=== PATIENT | male | born 2000 | race American Indian/Alaskan Native ===

== ENCOUNTER 2021-09-29 13:59 | Emergency (ER) | payer MEDICAID ==
[2021-09-29 15:05] VITALS: BP 129/65
--- NOTE | 2021-09-29 15:08 | Emergency Department Report ---
ED Extremity Problem HPI - General Stated complaint: INGROWN TOENAIL Time Seen by Provider: 09/29/21 15:03 - History of Present Illness Initial comments: 21-year-old black male with a past medical history of diabetes type 2 presents to the emergency department for evaluation of bilateral great toe pain. He states that yesterday while working he started to feel like he had an ingrown toenail. He denies fever or drainage. Complaint: extremity pain -: days(s) (1) Location: bilateral lower extremity, toe History of Same: No -: No fever Severity scale (0 -10): 2 Quality: aching Consistency: constant Associated Symptoms: denies other symptoms - Related Data Home Medications Medication Instructions Recorded Confirmed Last Taken No Known Home Medications [No 12/12/13 12/12/13 Unknown Reported Home Medications] Allergies Allergy/AdvReac Type Severity Reaction Status Date / Time No Known Allergies Allergy Unverified 12/12/13 10:22 ED Review of Systems ROS: Stated complaint: INGROWN TOENAIL Other details as noted in HPI Comment: All other systems reviewed and negative Constitutional: denies: fever Gastrointestinal: denies: abdominal pain, nausea, vomiting ED Past Medical Hx - Past Medical History Additional medical history: none - Medications Home Medications: Home Medications Medication Instructions Recorded Confirmed Last Taken Type No Known Home Medications [No 12/12/13 12/12/13 Unknown History Reported Home Medications] ED Physical Exam - General General appearance: alert, in no apparent distress - Head Head exam: Present: atraumatic, normocephalic - Eye Eye exam: Present: normal appearance. Absent: conjunctival injection - Neck Neck exam: Present: normal inspection. Absent: lymphadenopathy - Respiratory Respiratory exam: Absent: respiratory distress - Cardiovascular Cardiovascular Exam: Present: bradycardia - GI/Abdominal GI/Abdominal exam: Absent: distended, tenderness - Extremities Exam Extremities exam: Present: normal inspection, normal capillary refill. Absent: pedal edema - Expanded Lower Extremity Exam Left Foot/Toe exam: Present: normal inspection. Absent: tenderness, swelling, erythema Neuro vascular tendon exam: Present: no vascular compromise. Absent: pulse deficit, extremity cold to touch, pallor Gait: Positive: observed and normal Right Foot/Toe exam: Present: normal inspection. Absent: full ROM, tenderness, swelling, deformity, erythema Neuro vascular tendon exam: Present: no vascular compromise. Absent: pulse deficit, abnormal cap refill, extremity cold to touch, pallor Gait: Positive: observed and normal - Back Exam Back exam: Present: normal inspection - Neurological Exam Neurological exam: Present: alert, oriented X3 - Psychiatric Psychiatric exam: Present: normal affect, normal mood - Skin Skin exam: Present: warm, dry, intact, normal color ED Course Vital Signs 09/29/21 15:02 Temperature 97.8 F Pulse Rate 58 L Respiratory 14 Rate Blood Pressure 129/65 [Right] O2 Sat by Pulse 100 Oximetry ED Medical Decision Making - Medical Decision Making 21-year-old black male with a past medical history of diabetes type 2 presents t o the emergency department for evaluation of bilateral great toe pain. He states that yesterday while working he started to feel like he had an ingrown toenail. He denies fever or drainage. Physical exam unremarkable. Bilateral great toes without any edema, erythema or tenderness at this time. No signs of ingrown toenails. Patient advised to follow up with podiatry for complete diabetic foot exam. He is advised to return to ED as needed. He verbalizes understanding of and agreement with plan of care. Critical care attestation.: If time is entered above; I have spent that time in minutes in the direct care of this critically ill patient, excluding procedure time. ED Disposition Clinical Impression: Toe pain, bilateral Disposition: 01 HOME / SELF CARE / HOMELESS Is pt being admited?: No Does the pt Need Aspirin: No Condition: Stable Instructions: Foot Care, Adult, Ingrown Toenail, Type 1 Diabetes Mellitus, Self Care, Adult, [id number] Additional Instructions: Follow-up with podiatry for further evaluation and management. Return to the emergency department as needed. Referrals: JORJE WHITLEY MD [Staff Physician] - 3-5 Days ANGÉLICA CERDA DPM [Staff Physician] - 3-5 Days AMANDA SWARTZ DPM [Staff Physician] - 3-5 Days Forms: Work/School Release Form(ED) Time of Disposition: 15:09
== END 2021-09-29 15:20 | disposition home or self-care (01) ==
LOC: ED 13:59
DX: M79.675 Pain in left toe(s) (principal); M79.674 Pain in right toe(s)
CPT/HCPCS: 99282